=== PATIENT | female | born 1945 | race Caucasian/White ===

== ENCOUNTER 2023-01-01 11:59 | Emergency (ER) | payer OTHER, SELFPAY ==
[2023-01-01 12:15] VITALS: BP 170/80; PULSE 100; RESP 20; TEMP 36.7; O2SAT 98
[2023-01-01 12:20] VITALS: BP 168/70
--- NOTE | 2023-01-01 12:21 | ED.GENADULT ---
HPI - General Adult General Chief complaint: Dizziness Stated complaint: high bp Source: patient and RN notes reviewed History of Present Illness HPI narrative: 77 yo F Presents to urgent care with complaints of ongoing high blood pressure. Pt states she began taking her blood pressure at home about 7 days ago b/c she was having short episodes of lightheadedness at home while sitting. Pt states these episodes last only a couple seconds and resolved on their own. Pt states she hasn't had an episode like this in a few days but she has continued taking her BP. Pt states her BP has gotten as high as 180s systolic. Pt states she was at [facility] this morning and a man told her to come here to be evaluated for stroke b/c he had a similar experience. Pt denies any ARORA, blurry vision, falling, dizziness, numbness, tingling, chest pain, SOB, vomiting, or recent illness. Pt states her BP meds were changed from 12.5 mg Lisinopril to 80 mg of Valsartan back in October due to a persistent cough. Pt states she thought maybe her new medication wasn't working so for the last couple days, she hasn't taken the Valsartan and has taken 20 mg of Lisinopril daily. Related Data Home Medications Medication Instructions Recorded Confirmed atorvastatin 20 mg tablet 20 mg PO DAILY 01/01/23 01/01/23 omeprazole 20 mg capsule,delayed 20 mg PO DAILY 01/01/23 01/01/23 release valsartan 80 mg tablet 80 mg PO DAILY 01/01/23 01/01/23 Allergies Allergy/AdvReac Type Severity Reaction Status Date / Time No Known Allergies Allergy Unknown Verified 06/05/13 16:49 Review of Systems Review of Systems: Pertinent positives and pertinent negatives per HPI. PMFSH Comments At the time of my signature, I reviewed and agree with the nursing past medical, surgical, social, and family history. There is no relevant family history pertinent to the patient complaint. Exam Narrative: GENERAL: This is a well-nourished, well-developed patient, in no apparent distress. HEAD: normocephalic, atraumatic. EYES: Sclera clear/white. Vision is grossly intact. EARS: External ears normal, auditory canals clear and without drainage. Hearing grossly intact. NOSE: External nose normal with no obvious nasal discharge, nares without redness, no rhinorrhea. THROAT: Mucous membranes moist, posterior pharynx clear. NECK: Neck supple, non-tender without lymphadenopathy, masses or thyromegaly. CARDIOVASCULAR: Regular rate and rhythm without murmurs, gallops, or rubs. RESPIRATORY: Clear to auscultation. Breath sounds equal bilaterally. No wheezes, rales, or rhonchi. GASTROINTESTINAL: Abdomen soft, non-tender, nondistended. Bowel sounds are active. No hepato-splenomegaly, or palpable masses. No guarding. SKIN: warm, intact with no suspicious lesions or rash, good texture and turgor. NEURO: awake, alert, and oriented to person, place and time. There were no obvious focal neurologic abnormalities. EXTREMITIES: No clubbing, cyanosis. No joint tenderness, effusion noted. Mild, non-pitting, edema noted to bilateral lower extremities. BACK: Nontender without deformity or crepitus. No flank tenderness. Course Course Level of Care: Express Care Visit Vital Signs Vital signs: Reviewed Medical Decision Making MDM Narrative Medical decision making narrative: Follow up with your [facility] tomorrow. GO to the emergency department with any new or worsening symptoms, including but not limited to: headache not relieved with Tylenol, dizziness lasting longer than a couple minutes, chest pain, shortness of breath, vomiting, numbness, tingling, falling, or anything else abnormal. Differential Diagnosis Differential Diagnosis: HTN, CVA, anxiety Critical Care Time Critical Care Time Critical Care Time: No Discharge Plan Discharge Clinical Impression: Hypertension Qualifiers: Hypertension type: unspecified Qualified Code(s): I10 - Essential (primary) hypertension Patient Disposition:
== END 2023-01-01 12:45 | disposition home or self-care (01) ==
PROVIDERS: Emergency Provider Nurse Practitioner Family; PCP Nurse Practitioner Family
DX: I10 Essential (primary) hypertension (principal); E78.00 Pure hypercholesterolemia, unspecified; K21.9 Gastro-esophageal reflux disease without esophagitis; Z96.653 Presence of artificial knee joint, bilateral; Z85.828 Personal history of other malignant neoplasm of skin
CPT/HCPCS: 99211; G0463